=== PATIENT | male | born 1935 | race Caucasian/White ===

== ENCOUNTER 2018-04-28 13:41 | Inpatient (IN) | payer OTHER, BC ==
[~2018-04-28] VITALS: Ht 177.8 cm; Wt 77.1 kg
[~2018-04-28 13:41] MED LIST: ADV250/50; ALBUTEROL0.09 MG/A2 IH; CLINDAMYCIN HC300 MG PO; LAC PO; LEV500 PO; LOTENSIN40 MG PO; MIN2.5 PO
[2018-04-28 13:45] VITALS: Ht 177.8 cm; Wt 77.1 kg
[2018-04-28 14:04] LABS: BASOPHIL % 0.3 % (0-2); PLATELET COUNT 231 x10^3mcL (130-400)
[2018-04-28 14:05] LABS: RED CELL DISTRIBUTION WIDTH 17.4 % (11.5-14.5)
[2018-04-28 14:13] LABS: CALCIUM 9.4 mg/dL (8.5-10.1); CARBON DIOXIDE 25.7 mmol/L (21-32); CHLORIDE SERUM 105 mmol/L (98-107); CREATININE SERUM 1.6 mg/dL (0.7-1.3); GLUCOSE SERUM 112 mg/dL (74-106); POTASSIUM SERUM 4.4 mmol/L (3.5-5.1); SODIUM SERUM 139 mmol/L (136-145)
[2018-04-28 14:29] LABS: ALKALINE PHOSPHATASE 74 U/L (46-116); ALT/SGPT 88 U/L (16-63); AST/SGOT 57 U/L (15-37); BILIRUBIN TOTAL 0.8 mg/dL (0.20-1.00)
[2018-04-28 14:30] LABS: ALBUMIN 3.2 g/dL (3.4-5.0)
[2018-04-28 15:24] LABS: CHOLESTEROL/HDL RATIO 2.6; MAGNESIUM 2.1 mg/dL (1.8-2.4)
[2018-04-28 15:31] LABS: FREE T4 1.05 ng/dL (0.76-1.46); FREE THYROXINE INDEX 3.1 ug/dL (1.4-4.5); T3 TOTAL 0.84 ng/mL; T4(THYROXINE) 8.6 ug/dL (4.7-13.3)
[2018-04-28 16:17] VITALS: BP 112/67
[2018-04-28 16:38] VITALS: BP 119/58
[2018-04-28 17:07] VITALS: BP 119/58
[2018-04-28 21:34] VITALS: BP 98/48
[2018-04-29] VITALS (7 sets, daily range): BP systolic 96–146; BP diastolic 49–82
[2018-04-29 01:53] LABS: UA SPECIFIC GRAVITY >=1.030 (1.005-1.035); microscopic required? YES; urine erythrocyte NEGATIVE (NEGATIVE)
[2018-04-29 02:11] LABS: AMPHETAMINE QUAL UR NONE DETECTED (See below)
[2018-04-29 06:58] LABS: PLATELET COUNT 202 x10^3mcL (130-400)
[2018-04-29 06:59] LABS: BASOPHIL % 0 % (0-2); RED CELL DISTRIBUTION WIDTH 16.8 % (11.5-14.5)
[2018-04-29 07:39] LABS: CALCIUM 8.7 mg/dL (8.5-10.1); CARBON DIOXIDE 22.4 mmol/L (21-32); CHLORIDE SERUM 105 mmol/L (98-107); CREATININE SERUM 1.4 mg/dL (0.7-1.3); GLUCOSE SERUM 128 mg/dL (74-106); MAGNESIUM 2.2 mg/dL (1.8-2.4); PHOSPHOROUS 3.7 mg/dL (2.5-4.9); POTASSIUM SERUM 4.7 mmol/L (3.5-5.1); SODIUM SERUM 140 mmol/L (136-145)
[2018-04-29 13:52] LABS: BILIRUBIN DIRECT 0.23 mg/dL (0.0-0.2); BILIRUBIN TOTAL 0.4 mg/dL (0.20-1.00); TOTAL PROTEIN, SERUM 6.5 g/dL (6.4-8.2)
[2018-04-30 05:38] VITALS: BP 133/73
[2018-04-30 06:28] LABS: CALCIUM 8.4 mg/dL (8.5-10.1); CARBON DIOXIDE 23.4 mmol/L (21-32); CHLORIDE SERUM 106 mmol/L (98-107); CREATININE SERUM 1.3 mg/dL (0.7-1.3); GLUCOSE SERUM 136 mg/dL (74-106); MAGNESIUM 2.5 mg/dL (1.8-2.4); PHOSPHOROUS 3.7 mg/dL (2.5-4.9); POTASSIUM SERUM 5.2 mmol/L (3.5-5.1); SODIUM SERUM 139 mmol/L (136-145)
[2018-04-30 07:07] LABS: PLATELET COUNT 215 x10^3mcL (130-400)
[2018-04-30 07:26] LABS: BASOPHIL % 0 % (0-2); RED CELL DISTRIBUTION WIDTH 16.8 % (11.5-14.5)
[2018-04-30 10:12] VITALS: BP 114/62
[2018-04-30 14:37] VITALS: BP 124/74
[2018-04-30 18:03] VITALS: BP 114/66
[2018-04-30 20:26] VITALS: BP 122/63
[2018-05-01 05:41] VITALS: BP 139/74
[2018-05-01 06:06] LABS: BASOPHIL % 0.2 % (0-2); PLATELET COUNT 224 x10^3mcL (130-400)
[2018-05-01 06:12] LABS: RED CELL DISTRIBUTION WIDTH 16.6 % (11.5-14.5)
[2018-05-01 06:40] LABS: CALCIUM 8.3 mg/dL (8.5-10.1); CARBON DIOXIDE 26.7 mmol/L (21-32); CHLORIDE SERUM 108 mmol/L (98-107); CREATININE SERUM 1.4 mg/dL (0.7-1.3); GLUCOSE SERUM 92 mg/dL (74-106); MAGNESIUM 2.5 mg/dL (1.8-2.4); PHOSPHOROUS 3.4 mg/dL (2.5-4.9); POTASSIUM SERUM 4.5 mmol/L (3.5-5.1); SODIUM SERUM 143 mmol/L (136-145)
[2018-05-01 09:20] VITALS: BP 106/65
[2018-05-01 12:47] VITALS: BP 106/65
[2018-05-01 13:10] VITALS: BP 141/72
[2018-05-01 16:57] VITALS: BP 128/72
[2018-05-01 21:13] VITALS: BP 115/65
[2018-05-02 05:16] VITALS: BP 135/69
[2018-05-02 07:32] VITALS: BP 145/85
[2018-05-02 07:43] LABS: CALCIUM 8.6 mg/dL (8.5-10.1); CARBON DIOXIDE 29.7 mmol/L (21-32); CHLORIDE SERUM 103 mmol/L (98-107); CREATININE SERUM 1.4 mg/dL (0.7-1.3); GLUCOSE SERUM 107 mg/dL (74-106); MAGNESIUM 2.3 mg/dL (1.8-2.4); PHOSPHOROUS 3.4 mg/dL (2.5-4.9); SODIUM SERUM 139 mmol/L (136-145)
[2018-05-02 07:45] LABS: BASOPHIL % 0.2 % (0-2); PLATELET COUNT 223 x10^3mcL (130-400)
[2018-05-02 12:04] VITALS: BP 124/69
[2018-05-02 16:57] VITALS: BP 126/71
[2018-05-02 20:56] VITALS: BP 130/65
[2018-05-03 05:57] VITALS: BP 147/98
[2018-05-03 09:54] VITALS: BP 140/82
[2018-05-03 12:09] LABS: BASOPHIL % 0.1 % (0-2); PLATELET COUNT 236 x10^3mcL (130-400)
[2018-05-03 12:10] LABS: RED CELL DISTRIBUTION WIDTH 14.9 % (11.5-14.5)
[2018-05-03 12:18] LABS: CALCIUM 8.5 mg/dL (8.5-10.1); CARBON DIOXIDE 33.8 mmol/L (21-32); CHLORIDE SERUM 105 mmol/L (98-107); CREATININE SERUM 1.3 mg/dL (0.7-1.3); GLUCOSE SERUM 107 mg/dL (74-106); POTASSIUM SERUM 4.3 mmol/L (3.5-5.1); SODIUM SERUM 142 mmol/L (136-145)
[2018-05-03 12:24] LABS: BILIRUBIN DIRECT 0.22 mg/dL (0.0-0.2); BILIRUBIN TOTAL 0.57 mg/dL (0.20-1.00)
[2018-05-03 12:25] VITALS: BP 158/77
[2018-05-03 12:28] LABS: ALBUMIN 2.8 g/dL (3.4-5.0); TOTAL PROTEIN, SERUM 6.1 g/dL (6.4-8.2)
[2018-05-03 17:20] VITALS: BP 136/75
[2018-05-03 21:01] VITALS: BP 135/74
[2018-05-04 05:19] VITALS: BP 155/87
[2018-05-04 06:38] LABS: ALKALINE PHOSPHATASE 64 U/L (46-116); ALT/SGPT 57 U/L (16-63); AST/SGOT 19 U/L (15-37); BILIRUBIN DIRECT 0.15 mg/dL (0.0-0.2); BILIRUBIN TOTAL 0.49 mg/dL (0.20-1.00); CALCIUM 8.7 mg/dL (8.5-10.1); CARBON DIOXIDE 30.3 mmol/L (21-32); CHLORIDE SERUM 101 mmol/L (98-107); CREATININE SERUM 1.2 mg/dL (0.7-1.3); GLUCOSE SERUM 127 mg/dL (74-106); MAGNESIUM 2.4 mg/dL (1.8-2.4); PHOSPHOROUS 2.8 mg/dL (2.5-4.9); POTASSIUM SERUM 4.8 mmol/L (3.5-5.1); SODIUM SERUM 134 mmol/L (136-145); TOTAL PROTEIN, SERUM 6.4 g/dL (6.4-8.2)
[2018-05-04 07:49] LABS: PLATELET COUNT 247 x10^3mcL (130-400)
[2018-05-04 07:55] LABS: BASOPHIL % 0 % (0-2); RED CELL DISTRIBUTION WIDTH 14.6 % (11.5-14.5)
[2018-05-04 09:03] VITALS: BP 157/89
[2018-05-04 09:57] VITALS: BP 157/89
[2018-05-04 13:00] VITALS: BP 140/74
[2018-05-04 18:56] VITALS: BP 124/53
[2018-05-04 19:35] VITALS: BP 121/69
[2018-05-05 05:41] VITALS: BP 157/97
[2018-05-05 08:30] LABS: PLATELET COUNT 295 x10^3mcL (130-400)
[2018-05-05 08:31] LABS: CALCIUM 9.3 mg/dL (8.5-10.1); CARBON DIOXIDE 32.9 mmol/L (21-32); CHLORIDE SERUM 100 mmol/L (98-107); CREATININE SERUM 1.2 mg/dL (0.7-1.3); GLUCOSE SERUM 122 mg/dL (74-106); MAGNESIUM 2.4 mg/dL (1.8-2.4); PHOSPHOROUS 3.9 mg/dL (2.5-4.9); POTASSIUM SERUM 4.8 mmol/L (3.5-5.1); SODIUM SERUM 139 mmol/L (136-145)
[2018-05-05 09:23] VITALS: BP 154/80
[2018-05-05 09:23] LABS: RED CELL DISTRIBUTION WIDTH 15.6 % (11.5-14.5)
[2018-05-05 10:12] LABS: BAND NEUTROPHIL 2 % (0-10); MONOCYTE 5 % (0-7); SEGMENTED NEUTROPHILS 86 % (37-75)
[2018-05-05 10:13] LABS: rbc morphology (normal/abnorm) NORMAL (NORMAL)
[2018-05-05 10:14] LABS: PLATELET MORPHOLOGY PLATELETS NORMAL
[2018-05-05 12:30] VITALS: BP 158/95
[2018-05-05 17:07] VITALS: BP 157/95
[2018-05-05 20:54] VITALS: BP 127/70
[2018-05-06 05:23] VITALS: BP 138/75
[2018-05-06 07:39] LABS: CALCIUM 9.2 mg/dL (8.5-10.1); CHLORIDE SERUM 100 mmol/L (98-107); CREATININE SERUM 1.3 mg/dL (0.7-1.3); GLUCOSE SERUM 128 mg/dL (74-106); MAGNESIUM 2.4 mg/dL (1.8-2.4); PHOSPHOROUS 3.2 mg/dL (2.5-4.9); POTASSIUM SERUM 4.6 mmol/L (3.5-5.1); SODIUM SERUM 140 mmol/L (136-145)
[2018-05-06 08:49] LABS: BASOPHIL % 0.1 % (0-2); PLATELET COUNT 285 x10^3mcL (130-400)
[2018-05-06 08:54] LABS: RED CELL DISTRIBUTION WIDTH 15.8 % (11.5-14.5)
[2018-05-06 09:58] VITALS: BP 120/72
[2018-05-06 13:28] VITALS: BP 148/86
[2018-05-06 17:40] VITALS: BP 135/76
[2018-05-06 20:58] VITALS: BP 110/60
[2018-05-07 05:34] VITALS: BP 163/85
[2018-05-07 06:10] LABS: PLATELET COUNT 289 x10^3mcL (130-400)
[2018-05-07 06:27] LABS: CALCIUM 8.9 mg/dL (8.5-10.1); CARBON DIOXIDE 30.6 mmol/L (21-32); CHLORIDE SERUM 100 mmol/L (98-107); CREATININE SERUM 1.3 mg/dL (0.7-1.3); GLUCOSE SERUM 123 mg/dL (74-106); POTASSIUM SERUM 4.5 mmol/L (3.5-5.1); SODIUM SERUM 137 mmol/L (136-145)
[2018-05-07 06:41] LABS: RED CELL DISTRIBUTION WIDTH 15.6 % (11.5-14.5)
[2018-05-07 09:51] LABS: METAMYELOCTE 2 % (0-2); MONOCYTE 5 % (0-7); PLATELET MORPHOLOGY LARGE PLATELET SEEN; SEGMENTED NEUTROPHILS 90 % (37-75); rbc morphology (normal/abnorm) NORMAL (NORMAL)
[2018-05-07 10:33] VITALS: BP 99/72
[2018-05-07 11:14] VITALS: BP 99/72
[2018-05-07 14:20] VITALS: BP 127/67
[2018-05-07 17:59] VITALS: BP 121/71
[2018-05-07 22:32] VITALS: BP 122/66
[2018-05-08 05:54] VITALS: BP 136/79
[2018-05-08 07:01] LABS: PLATELET COUNT 271 x10^3mcL (130-400)
[2018-05-08 07:06] LABS: CALCIUM 9.1 mg/dL (8.5-10.1); CARBON DIOXIDE 31.1 mmol/L (21-32); CHLORIDE SERUM 101 mmol/L (98-107); CREATININE SERUM 1.3 mg/dL (0.7-1.3); GLUCOSE SERUM 127 mg/dL (74-106); POTASSIUM SERUM 4.7 mmol/L (3.5-5.1); SODIUM SERUM 137 mmol/L (136-145)
[2018-05-08 08:16] LABS: RED CELL DISTRIBUTION WIDTH 15.9 % (11.5-14.5)
[2018-05-08 08:56] LABS: ATYPICAL LYMPH 5 %; BAND NEUTROPHIL 0 % (0-10); BASOPHIL 0 % (0-2); MONOCYTE 5 % (0-7); SEGMENTED NEUTROPHILS 90 % (37-75)
[2018-05-08 08:57] LABS: PLATELET MORPHOLOGY PLATELETS NORMAL; rbc morphology (normal/abnorm) ABNORMAL (NORMAL)
[2018-05-08 09:38] VITALS: BP 115/76
[2018-05-08 13:03] VITALS: BP 123/75
[2018-05-08 16:59] VITALS: BP 110/70
[2018-05-08 21:48] VITALS: BP 135/82
[2018-05-09 06:16] LABS: CALCIUM 9.4 mg/dL (8.5-10.1); CARBON DIOXIDE 32.2 mmol/L (21-32); CHLORIDE SERUM 99 mmol/L (98-107); CREATININE SERUM 1.4 mg/dL (0.7-1.3); GLUCOSE SERUM 142 mg/dL (74-106); MAGNESIUM 2.5 mg/dL (1.8-2.4); POTASSIUM SERUM 4.8 mmol/L (3.5-5.1); SODIUM SERUM 139 mmol/L (136-145)
[2018-05-09 06:20] LABS: PLATELET COUNT 301 x10^3mcL (130-400)
[2018-05-09 06:22] VITALS: BP 129/80
[2018-05-09 06:43] LABS: RED CELL DISTRIBUTION WIDTH 15.9 % (11.5-14.5)
[2018-05-09 09:04] VITALS: BP 131/66
[2018-05-09 12:01] LABS: BAND NEUTROPHIL 1 % (0-10); MONOCYTE 2 % (0-7); SEGMENTED NEUTROPHILS 92 % (37-75)
[2018-05-09 12:02] LABS: rbc morphology (normal/abnorm) ABNORMAL (NORMAL)
[2018-05-09 13:11] VITALS: BP 131/66
[2018-05-09 13:22] VITALS: BP 126/69
[2018-05-09] MEDS ORDERED: SOL40I IV (13:23)
[2018-05-09] MEDS ORDERED: ZOS3PM IV (13:23)
[2018-05-09] MEDS ORDERED: LEVAQUIN750 MG PO (13:23)
[2018-05-09 16:28] VITALS: BP 132/86
[2018-05-09 21:06] VITALS: BP 139/71
== END 2018-05-09 23:10 | DRG 177 ==
LOC: ED 13:41 → MU 14:42 → DU 14:42 → MU 15:56 → DU 16:46
PROVIDERS: Emergency Medicine; Internal Medicine; ADMIT Family Medicine
DX: J69.0 Pneumonitis due to inhalation of food and vomit (principal); N17.0 Acute kidney failure with tubular necrosis; J96.21 Acute and chronic respiratory failure with hypoxia; G93.41 Metabolic encephalopathy; I50.43 Acute on chronic combined systolic (congestive) and diastolic (congestive) heart failure; J44.1 Chronic obstructive pulmonary disease with (acute) exacerbation; E44.0 Moderate protein-calorie malnutrition; G72.81 Critical illness myopathy; R73.03 Prediabetes; J84.10 Pulmonary fibrosis, unspecified; E83.41 Hypermagnesemia; I10 Essential (primary) hypertension; R74.0 Nonspecific elevation of levels of transaminase and lactic acid dehydrogenase [LDH]; F17.210 Nicotine dependence, cigarettes, uncomplicated; Z68.22 Body mass index [BMI] 22.0-22.9, adult; Z99.81 Dependence on supplemental oxygen
CPT/HCPCS: 36600; 83880; 84439; 87804; 97110-GP; 97116-GP; 97530-GP; J0132; J0696; J1644; J1940; J1956; J2543; J2920; J2930; J7030; J7040; J7613; J7620; J7633; J7644; Q0092; Q9967

== ENCOUNTER 2018-06-04 22:58 | Inpatient (IN) | payer OTHER, BC ==
[~2018-06-04] VITALS: Ht 165.1 cm; Wt 71.7 kg
[~2018-06-04 22:58] MED LIST changes: +LEVAQUIN750 MG PO; +SOL40I IV; +ZOS3PM IV
[2018-06-04 23:41] LABS: PLATELET COUNT 165 x10^3mcL (130-400)
[2018-06-04 23:42] LABS: RED CELL DISTRIBUTION WIDTH 15.1 % (11.5-14.5)
[2018-06-04 23:54] LABS: CALCIUM 8.6 mg/dL (8.5-10.1); CARBON DIOXIDE 24.4 mmol/L (21-32); CHLORIDE SERUM 103 mmol/L (98-107); CREATININE SERUM 1.3 mg/dL (0.7-1.3); GLUCOSE SERUM 136 mg/dL (74-106); POTASSIUM SERUM 4.9 mmol/L (3.5-5.1); SODIUM SERUM 138 mmol/L (136-145)
[2018-06-04 23:58] LABS: ALKALINE PHOSPHATASE 58 U/L (46-116); ALT/SGPT 80 U/L (16-63); AST/SGOT 60 U/L (15-37); BILIRUBIN TOTAL 0.6 mg/dL (0.20-1.00)
[2018-06-05] VITALS (8 sets, daily range): BP systolic 107–111; BP diastolic 56–72
[2018-06-05] LABS: ALBUMIN 2.5 g/dL (3.4-5.0)
[2018-06-05 00:11] LABS: ATYPICAL LYMPH 1 %; BAND NEUTROPHIL 12 % (0-10); MONOCYTE 1 % (0-7); SEGMENTED NEUTROPHILS 81 % (37-75); burr cell (echinocyte) 1+; rbc morphology (normal/abnorm) ABNORMAL (NORMAL)
[2018-06-05 00:12] LABS: PLATELET MORPHOLOGY PLATELETS NORMAL
[2018-06-05 02:48] LABS: CHOLESTEROL/HDL RATIO 4.4; MAGNESIUM 1.8 mg/dL (1.8-2.4); PHOSPHOROUS 3.3 mg/dL (2.5-4.9)
[2018-06-05 03:03] LABS: FREE T4 1.04 ng/dL (0.76-1.46); FREE THYROXINE INDEX 2.8 ug/dL (1.4-4.5); T4(THYROXINE) 7.2 ug/dL (4.7-13.3)
[2018-06-05 04:09] LABS: T3 TOTAL 0.73 ng/mL
[2018-06-05 07:13] LABS: CALCIUM 7.4 mg/dL (8.5-10.1); CARBON DIOXIDE 21.8 mmol/L (21-32); CHLORIDE SERUM 113 mmol/L (98-107); CREATININE SERUM 0.9 mg/dL (0.7-1.3); GLUCOSE SERUM 120 mg/dL (74-106); PHOSPHOROUS 3.2 mg/dL (2.5-4.9); POTASSIUM SERUM 4.1 mmol/L (3.5-5.1); SODIUM SERUM 145 mmol/L (136-145)
[2018-06-05 07:37] LABS: BASOPHIL % 0.1 % (0-2); PLATELET COUNT 138 x10^3mcL (130-400); RED CELL DISTRIBUTION WIDTH 14.8 % (11.5-14.5)
[2018-06-05 09:22] LABS: UA SPECIFIC GRAVITY >=1.030 (1.005-1.035); microscopic required? YES; urine erythrocyte NEGATIVE (NEGATIVE)
[2018-06-05 11:17] LABS: AMPHETAMINE QUAL UR NONE DETECTED (See below)
[2018-06-06 05:20] VITALS: BP 116/68
[2018-06-06 06:51] LABS: BASOPHIL % 0.1 % (0-2); PLATELET COUNT 148 x10^3mcL (130-400)
[2018-06-06 07:24] LABS: RED CELL DISTRIBUTION WIDTH 14.8 % (11.5-14.5)
[2018-06-06 07:39] LABS: CALCIUM 8.5 mg/dL (8.5-10.1); CARBON DIOXIDE 25.3 mmol/L (21-32); CHLORIDE SERUM 108 mmol/L (98-107); CREATININE SERUM 0.9 mg/dL (0.7-1.3); GLUCOSE SERUM 174 mg/dL (74-106); MAGNESIUM 2.2 mg/dL (1.8-2.4); PHOSPHOROUS 2.5 mg/dL (2.5-4.9); POTASSIUM SERUM 4.9 mmol/L (3.5-5.1); SODIUM SERUM 141 mmol/L (136-145)
[2018-06-06 08:00] VITALS: BP 112/65
[2018-06-06 09:45] VITALS: BP 118/56
[2018-06-06 13:21] VITALS: BP 112/65
[2018-06-06 16:30] VITALS: BP 122/68
[2018-06-06 19:20] VITALS: BP 126/71
[2018-06-07 05:49] VITALS: BP 157/74
[2018-06-07 06:48] LABS: BASOPHIL % 0.2 % (0-2); PLATELET COUNT 167 x10^3mcL (130-400); RED CELL DISTRIBUTION WIDTH 13.3 % (11.5-14.5)
[2018-06-07 07:12] LABS: CARBON DIOXIDE 27.9 mmol/L (21-32); CHLORIDE SERUM 105 mmol/L (98-107); GLUCOSE SERUM 143 mg/dL (74-106); POTASSIUM SERUM 5.3 mmol/L (3.5-5.1); SODIUM SERUM 140 mmol/L (136-145)
[2018-06-07 13:18] VITALS: BP 159/81
[2018-06-07 16:39] VITALS: BP 119/67
[2018-06-07 19:15] VITALS: BP 99/70
[2018-06-08 05:31] VITALS: BP 128/64
[2018-06-08 06:37] LABS: PLATELET COUNT 170 x10^3mcL (130-400); RED CELL DISTRIBUTION WIDTH 13.3 % (11.5-14.5)
[2018-06-08 06:40] LABS: BASOPHIL % 0 % (0-2)
[2018-06-08 06:45] LABS: CALCIUM 8.3 mg/dL (8.5-10.1); CARBON DIOXIDE 29.4 mmol/L (21-32); CHLORIDE SERUM 102 mmol/L (98-107); GLUCOSE SERUM 192 mg/dL (74-106); POTASSIUM SERUM 4.8 mmol/L (3.5-5.1); SODIUM SERUM 134 mmol/L (136-145)
[2018-06-08 09:05] VITALS: Ht 165.1 cm; Wt 71.7 kg
[2018-06-08 09:45] VITALS: BP 134/78
[2018-06-08 13:48] VITALS: BP 141/75
[2018-06-08 16:54] VITALS: BP 122/60
[2018-06-09 05:35] VITALS: BP 142/77
[2018-06-09 06:58] LABS: BASOPHIL % 0.2 % (0-2); PLATELET COUNT 184 x10^3mcL (130-400); RED CELL DISTRIBUTION WIDTH 13.5 % (11.5-14.5)
[2018-06-09 07:02] LABS: CALCIUM 8.5 mg/dL (8.5-10.1); CARBON DIOXIDE 28.6 mmol/L (21-32); CHLORIDE SERUM 102 mmol/L (98-107); CREATININE SERUM 0.9 mg/dL (0.7-1.3); GLUCOSE SERUM 119 mg/dL (74-106); POTASSIUM SERUM 4.6 mmol/L (3.5-5.1); SODIUM SERUM 137 mmol/L (136-145)
[2018-06-09 10:39] VITALS: BP 125/71
[2018-06-09 12:47] VITALS: BP 130/64
[2018-06-09] MEDS ORDERED: DEXPF IV (16:53)
[2018-06-09] MEDS ORDERED: HUMULIN R100 U/1 M1 SC (16:53)
[2018-06-09] MEDS ORDERED: BG FS (16:53)
[2018-06-09] MEDS ORDERED: SOL40I IV (16:53)
[2018-06-09 17:40] VITALS: BP 141/78
[2018-06-09 18:26] VITALS: BP 141/78
== END 2018-06-09 20:40 | DRG 871 ==
LOC: ED 22:58 → DU 06-05 00:17
PROVIDERS: Emergency Medicine; ADMIT Internal Medicine
DX: A41.9 Sepsis, unspecified organism (principal); N17.0 Acute kidney failure with tubular necrosis; I21.A1 Myocardial infarction type 2; J69.0 Pneumonitis due to inhalation of food and vomit; J96.21 Acute and chronic respiratory failure with hypoxia; E84.0 Cystic fibrosis with pulmonary manifestations; J44.1 Chronic obstructive pulmonary disease with (acute) exacerbation; E86.0 Dehydration; I10 Essential (primary) hypertension; R73.03 Prediabetes; R74.0 Nonspecific elevation of levels of transaminase and lactic acid dehydrogenase [LDH]; Z68.22 Body mass index [BMI] 22.0-22.9, adult; Z99.81 Dependence on supplemental oxygen; F17.210 Nicotine dependence, cigarettes, uncomplicated; Z91.19 Patient's noncompliance with other medical treatment and regimen
CPT/HCPCS: 36600; 82962; 83880; 84439; 87804; 92526-GN; 92610; 97110-GP; 97530-GP; J1644; J2543; J2920; J2930; J3370; J7030; J7050; J7620; J7626; Q0092